=== PATIENT | female | born 1995 | race Caucasian/White ===

== ENCOUNTER 2022-09-16 06:48 | Day surgery (SDC) | payer BC, OTHER ==
[2022-09-16] MEDS ORDERED: fentaNYL 50 MCG/ML SDV ONE (06:59)
[2022-09-16] MEDS ORDERED: Propofol 200 MG/20 ML SDV ONE (06:59)
[2022-09-16] MEDS ORDERED: Lactated Ringers 1,000 ML IV SCH (07:45)
== END 2022-09-16 09:16 | disposition home or self-care (01) ==
LOC: JP.SDS 06:48
PROVIDERS: ATTEND Student in an Organized Health Care Education/Training Program
DX: K29.50 Unspecified chronic gastritis without bleeding (principal); K44.9 Diaphragmatic hernia without obstruction or gangrene; K21.9 Gastro-esophageal reflux disease without esophagitis; I10 Essential (primary) hypertension; E11.9 Type 2 diabetes mellitus without complications; Z79.899 Other long term (current) drug therapy
CPT/HCPCS: 43239; 81025; J2704; J3010; J7120; 88305

== ENCOUNTER 2023-01-25 23:34 | Emergency (ER) | payer OTHER, BC | END 2023-01-26 02:25 | disposition home or self-care (01) | LOC: JP.ED 23:34 | DX: R10.84 Generalized abdominal pain (principal); E11.9 Type 2 diabetes mellitus without complications; I10 Essential (primary) hypertension; E66.9 Obesity, unspecified; E78.00 Pure hypercholesterolemia, unspecified; Z68.42 Body mass index [BMI] 45.0-49.9, adult; Z86.16 Personal history of COVID-19; Z79.84 Long term (current) use of oral hypoglycemic drugs; Z79.82 Long term (current) use of aspirin; Z79.899 Other long term (current) drug therapy; Z79.4 Long term (current) use of insulin | CPT/HCPCS: 74018; 74018-26; 99284 ==

== ENCOUNTER 2023-02-12 04:30 | Inpatient (IN) | payer OTHER, BC ==
[2023-02-19 06:26] LABS: HEMATOCRIT 39.1 % (34.3-46.0); HEMOGLOBIN 13.2 g/dL (11.2-15.5); MEAN CORPUSCULAR HEMOGLOBIN 29.5 pg (31.6-35.5); MEAN CORPUSCULAR HGB CONC 33.8 g/dL (31.6-35.5); MEAN CORPUSCULAR VOLUME 87.5 fL (81.4-99.0); RED BLOOD CELL COUNT 4.47 M/uL (3.77-5.24)
[2023-02-19] MEDS ORDERED: metroNIDAZOLE/Normal Saline 500 MG in Premix Bag 1 BAG IV ONE (06:30)
[2023-02-19] MEDS ORDERED: Sodium Chloride 0.9% 1,000 ML IV SCH ×2 (06:30→07:45)
[2023-02-19] MEDS ORDERED: Lactated Ringers 1,000 ML IV SCH ×2 (06:30→07:30)
[2023-02-19] MEDS ORDERED: Enoxaparin 40 MG/0.4 ML Syringe SUBCUT ONE (06:30)
[2023-02-19] MEDS ORDERED: Acetaminophen 500 MG Tab PO ONE (06:30)
[2023-02-19] MEDS ORDERED: cefTRIAXone 2 GM in Sodium Chloride 0.9% 50 ML IV ONE (06:30)
[2023-02-19] MEDS ORDERED: Gabapentin 300 MG Cap PO ONE (06:30)
[2023-02-19] MEDS ORDERED: Scopolamine 1.5 MG Transdermal Patch TOP ONE (06:30)
[2023-02-19 06:40] LABS: CALCIUM 9.3 mg/dL (8.5-10.1); CREATININE 0.9 mg/dL (0.6-1.0); EST CRCL DRUG DOSING (CG) 87.9 mL/min
[2023-02-19] MEDS ORDERED: Rocuronium 50 MG/5 ML Vial ONE (06:50)
[2023-02-19] MEDS ORDERED: Dexamethasone 4 MG/ML SDV ONE (06:50)
[2023-02-19] MEDS ORDERED: Neostigmine Methylsulfate 1 MG/ML 5 ML Syringe ONE (06:50)
[2023-02-19] MEDS ORDERED: Succinylcholine 200 MG/10 ML MDV ONE (06:50)
[2023-02-19] MEDS ORDERED: Propofol 200 MG/20 ML SDV ONE (06:50)
[2023-02-19] MEDS ORDERED: Glycopyrrolate 0.2 MG/ML 5 ML MDV ONE (06:50)
[2023-02-19] MEDS ORDERED: Ondansetron 4 MG/2 ML SDV ONE (06:50)
[2023-02-19] MEDS ORDERED: Bupivacaine 0.5%/EPINEPHrine 1:200,000 50 ML MDV ONE (07:03)
[2023-02-19] MEDS ORDERED: Ketamine 500 MG/5 ML MDV IV SCH (07:45)
[2023-02-19] MEDS ORDERED: fentaNYL 100 MCG/2 ML SDV ONE (10:03)
[2023-02-19] MEDS ORDERED: Scopolamine 1.5 MG Transdermal Patch TRDERM PRN (10:33)
[2023-02-19] MEDS ORDERED: Pantoprazole 40 MG Vial IVPUSH PRN (10:33)
[2023-02-19] MEDS ORDERED: 50% Dextrose in Water 50 ML Syringe IVPUSH PRN (10:44)
[2023-02-19] MEDS ORDERED: Glucagon,Human Recombinant 1 MG Vial IM PRN (10:44)
[2023-02-19] MEDS ORDERED: Dextrose 5%-Lactated Ringers 1,000 ML IV SCH (10:45)
[2023-02-19] MEDS: Insulin Lispro 100 Unit/ML 3 ML KwikPen SUBCUT SCH ×3 (11:04→21:20)
[2023-02-19] MEDS: Cyclobenzaprine 10 MG Tab PO PRN (14:40)
[2023-02-19] MEDS: Lactated Ringers 1,000 ML IV SCH ×2 (14:40→23:01)
[2023-02-19] MEDS: Acetaminophen 1,000 MG in Premix Bag 1 BAG IV PRN ×2 (14:41→21:26)
[2023-02-19] MEDS: oxyCODONE 5 MG Tab PO PRN (18:51)
[2023-02-19] MEDS: Ondansetron 4 MG/2 ML SDV IVPUSH PRN (19:33)
[2023-02-19] MEDS ORDERED: INSULIN LISPRO 200 UNIT/ML SQ SCH (21:00)
[2023-02-19] MEDS ORDERED: INSULN SQ SCH (21:00)
[2023-02-19] MEDS ORDERED: [UNRECOGNIZED DRUG - OTHER] SQ SCH (21:00)
[2023-02-19] MEDS: Insulin Glargine,Human Rec. Analog 100 Units/ML 3 ML Pen SUBCUT SCH (21:21)
[2023-02-19] MEDS: buPROPion 150 MG Tab.SR PO SCH (21:22)
[2023-02-19] MEDS: Labetalol 100 MG Tab PO SCH (21:22)
[2023-02-20] MEDS: Cyclobenzaprine 10 MG Tab PO PRN (00:55)
[2023-02-20] MEDS: oxyCODONE 5 MG Tab PO PRN ×4 (01:51→20:43)
[2023-02-20] MEDS: Ondansetron 4 MG/2 ML SDV IVPUSH PRN (03:10)
[2023-02-20] MEDS: Acetaminophen 1,000 MG in Premix Bag 1 BAG IV PRN (03:44)
[2023-02-20 04:19] LABS: HEMOGLOBIN 12.7 g/dL (11.2-15.5); MEAN CORPUSCULAR HEMOGLOBIN 29.8 pg (31.6-35.5); MEAN CORPUSCULAR HGB CONC 34.3 g/dL (31.6-35.5); MEAN CORPUSCULAR VOLUME 86.9 fL (81.4-99.0); RED BLOOD CELL COUNT 4.26 M/uL (3.77-5.24); WHITE BLOOD CELL COUNT,WBC 16.7 K/uL (3.2-11.0)
[2023-02-20 04:58] LABS: A/G RATIO 0.8 (1.2-2.2); ALBUMIN 3.4 g/dL (3.4-5.0); ALKALINE PHOSPHATASE 50 U/L (46-116); BILIRUBIN TOTAL 0.7 mg/dL (0.2-1.0); BLOOD UREA NITROGEN,BUN 11 mg/dL (7-18); CALCIUM 9.1 mg/dL (8.5-10.1); CARBON DIOXIDE,CO2 27 mmol/L (21-32); CHLORIDE,CL 99 mmol/L (100-108); CREATININE 0.7 mg/dL (0.6-1.0); EST CRCL DRUG DOSING (CG) 117.39 mL/min; ESTIMATED GFR 121 mL/min (>60); GLUCOSE RANDOM 194 mg/dL (74-106); MAGNESIUM 2.1 mg/dL (1.8-2.4); POTASSIUM,K 4.1 mmol/L (3.6-5.2); PROTEIN TOTAL,TP 7.5 g/dL (6.4-8.2); SODIUM,NA 135 mmol/L (140-148)
[2023-02-20 05:01] LABS: ANION GAP 13.1 mmol/L (5.0-14.0)
[2023-02-20 05:02] LABS: ALANINE AMINOTRANSFERASE,ALT 1558 U/L (12-78); ASPARTATE AMNIOTRANSFERASE,AST 1318 U/L (15-37)
[2023-02-20] MEDS: Escitalopram 10 MG Tab PO SCH (08:03)
[2023-02-20] MEDS: Labetalol 100 MG Tab PO SCH ×2 (08:03→20:44)
[2023-02-20] MEDS: buPROPion 150 MG Tab.SR PO SCH ×3 (08:03→20:44)
[2023-02-20] MEDS: Insulin Lispro 100 Unit/ML 3 ML KwikPen SUBCUT SCH ×4 (08:06→22:00)
[2023-02-20] MEDS: Insulin Glargine,Human Rec. Analog 100 Units/ML 3 ML Pen SUBCUT SCH ×2 (08:07→22:01)
[2023-02-20] MEDS ORDERED: 50% Dextrose in Water 50 ML Syringe IVPUSH PRN (08:43)
[2023-02-20] MEDS ORDERED: Glucagon,Human Recombinant 1 MG Vial IM PRN (08:43)
[2023-02-20] MEDS: Enoxaparin 40 MG/0.4 ML Syringe SUBCUT SCH ×2 (09:42→19:55)
[2023-02-20] MEDS: Ketorolac 15 MG/ML SDV IVPUSH SCH ×3 (09:42→22:03)
[2023-02-20] MEDS: Lactated Ringers 1,000 ML IV SCH (16:17)
[2023-02-21] MEDS ORDERED: Acetaminophen Soln 160 MG/5 ML UD Cup PO SCH (00:05)
[2023-02-21] MEDS: Acetaminophen Soln 650 MG/20.3 ML UD Cup PO SCH ×2 (04:09→10:17)
[2023-02-21] MEDS: Ketorolac 15 MG/ML SDV IVPUSH SCH ×2 (04:10→11:44)
[2023-02-21 04:16] LABS: HEMATOCRIT 34.9 % (34.3-46.0); HEMOGLOBIN 11.7 g/dL (11.2-15.5); MEAN CORPUSCULAR HEMOGLOBIN 29.7 pg (31.6-35.5); MEAN CORPUSCULAR HGB CONC 33.5 g/dL (31.6-35.5); MEAN CORPUSCULAR VOLUME 88.6 fL (81.4-99.0); RED BLOOD CELL COUNT 3.94 M/uL (3.77-5.24); WHITE BLOOD CELL COUNT,WBC 11.7 K/uL (3.2-11.0)
[2023-02-21 04:37] LABS: CALCIUM 8.8 mg/dL (8.5-10.1); CREATININE 0.8 mg/dL (0.6-1.0); EST CRCL DRUG DOSING (CG) 102.72 mL/min; MAGNESIUM 2.2 mg/dL (1.8-2.4); PHOSPHORUS 3.6 mg/dL (2.5-4.9); POTASSIUM,K 3.5 mmol/L (3.6-5.2)
[2023-02-21 05:06] LABS: ANION GAP 13.5 mmol/L (5.0-14.0)
[2023-02-21] MEDS: Enoxaparin 40 MG/0.4 ML Syringe SUBCUT SCH (08:27)
[2023-02-21] MEDS: Escitalopram 10 MG Tab PO SCH (08:28)
[2023-02-21] MEDS: buPROPion 150 MG Tab.SR PO SCH (08:28)
[2023-02-21] MEDS: Labetalol 100 MG Tab PO SCH (08:29)
[2023-02-21] MEDS: Insulin Lispro 100 Unit/ML 3 ML KwikPen SUBCUT SCH (08:29)
[2023-02-21] MEDS: Insulin Glargine,Human Rec. Analog 100 Units/ML 3 ML Pen SUBCUT SCH (08:30)
[2023-02-21] MEDS ORDERED: Potassium Chloride 10 MEQ in Premix Bag 1 BAG IV ONE (09:00)
[2023-02-21] MEDS: oxyCODONE 5 MG Tab PO PRN (10:10)
== END 2023-02-21 11:50 | disposition home or self-care (01) | DRG 621 ==
LOC: JP.SDSSCHI 02-19 05:46 → JP.MS 02-19 10:33
PROVIDERS: ADMIT Student in an Organized Health Care Education/Training Program; ATTEND Student in an Organized Health Care Education/Training Program
PROC: 0DB64Z3 Excision of Stomach, Percutaneous Endoscopic Approach, Vertical (ICD-10-PCS; principal; 2023-02-19)
PROC: 8E0W4CZ Robotic Assisted Procedure of Trunk Region, Percutaneous Endoscopic Approach (ICD-10-PCS; 2023-02-19)
DX: E66.01 Morbid (severe) obesity due to excess calories (principal); I10 Essential (primary) hypertension; E11.9 Type 2 diabetes mellitus without complications; G47.33 Obstructive sleep apnea (adult) (pediatric); E78.5 Hyperlipidemia, unspecified; E87.6 Hypokalemia; Z79.4 Long term (current) use of insulin; Z98.890 Other specified postprocedural states; Z79.899 Other long term (current) drug therapy; Z68.42 Body mass index [BMI] 45.0-49.9, adult; Z79.82 Long term (current) use of aspirin
CPT/HCPCS: 36415; 80048; 80053; 81025; 82947; 83735; 84100; 85027; 88307; A9270-GY; J0131; J0171; J0330; J0696; J1100; J1650; J1815; J1815-GY; J1885; J2405; J2704; J2710; J2795; J3010; J3480; J3490; J7030; J7120